=== PATIENT | male | born 1975 | race Caucasian/White ===

== ENCOUNTER 2019-06-03 06:43 | Inpatient (IN) ==
[~2019-06-03 06:43] MED LIST: Bacitracin 50,000 UNIT, Polymyxin B Sulfate 500,000 UNIT, Sodium Chloride IRRigation 1,... IR ONE
[2019-06-03] MEDS ORDERED: *HR* Succinylcholine 200 MG/10 ML VIAL IVP ONE (07:03)
[2019-06-03] MEDS ORDERED: Lidocaine -MPF 4% 5 ML AMPUL ONE (07:03)
[2019-06-03] MEDS ORDERED: Dexamethasone 4 MG/ML VIAL ONE (07:03)
[2019-06-03] MEDS ORDERED: Lidocaine -MPF 2% 2 ML VIAL ONE (07:03)
[2019-06-03] MEDS ORDERED: *HR* Midazolam HCl 2 MG/2 ML VIAL ONE ×2 (07:03→11:35)
[2019-06-03] MEDS ORDERED: Ketorolac 30 MG/ML VIAL ONE (07:03)
[2019-06-03] MEDS ORDERED: *HR* Rocuronium Bromide 50 MG/5 ML VIAL ONE (07:03)
[2019-06-03] MEDS ORDERED: *HR* Propofol 200 MG/20 ML VIAL IVP ONE (07:03)
[2019-06-03] MEDS ORDERED: Ondansetron 4 MG/2 ML VIAL ONE (07:03)
[2019-06-03] MEDS ORDERED: Neostigmine Methylsulfate 3 MG/3 ML SYRINGE ONE (07:03)
[2019-06-03] MEDS ORDERED: *HR* Remifentanil 1 MG VIAL IVP ONE ×2 (07:04→10:51)
[2019-06-03] MEDS ORDERED: CeFAZolin Syr 2,000MG/20 ML 2,000 MG/20 ML SYRINGE IVPB ONE (07:12)
[2019-06-03] MEDS ORDERED: Ringers Solution, Lactated 1,000 ML IVC SCH (07:15)
--- NOTE | 2019-06-03 07:28 | Anesthesia Evaluation PreOp ---
Date of Encounter: 06/03/19 Time of Encounter: 07:26 - Past History Planned Operation: PLIF S3-L1 Cardiac History: Denies any Significant Hx Pulmonary History: Smoker CHEF DE FROID History: Denies Any Significant HX Other Medical History: Denies Any Significant HX Anesthesia History: No Prior Anesthetic Complications, Past Anesthesia (L4-S1 Fusion, Tonsillectomy, L- Thumb, Vasectomy) Alcohol Use: none Drug use: none Medications and Allergies Allergy/AdvReac Type Severity Reaction Status Date / Time No Known Allergies Allergy Verified 05/15/19 10:55 - Meds/Allergy Pre-op Review Medications Reviewed: Yes Allergies Reviewed: Yes Beta Blockers on Current Med List: No Anesthesia Results - Labs Laboratory Tests 05/15/19 05/15/19 05/15/19 11:18 11:18 11:18 WBC 7.6 Hgb 14.3 Hct 40.9 Plt Count 291 INR 0.9 Sodium 139 Potassium 4.0 Chloride 104 Carbon Dioxide 24 BUN 23 H Creatinine 0.93 Anesthesia Exam O2 Sat Height 1.91 m Weight 98.883 kg O2 Sat by Pulse Oximetry 18 Vital Signs Temp Pulse Resp Pulse Ox 98.4 F 87 96 18 06/03/19 07:16 06/03/19 07:16 06/03/19 07:16 06/03/19 07:16 - HEENT Pupil (Motor): Pupils equal, EOMI Oral Opening: Greater than 3 - CHEF DE FROID LOC: Oriented CHEF DE FROID Motor: Normal RUE, Normal LUE, Normal RLE, Normal LLE, Normal Face CHEF DE FROID Sensory: Normal: RUE, LUE, RLE, LLE, Face - Cardiac Rhythm: Regular Murmur: None JVD: No Carotid Bruit: No - Pulmonary Breath Sounds: bilateral Clear Respiratory Effort: Symmetrical Anesthesia Assess/Plan ASA Score: 2 Level of consciousness: Cooperative Anesthetic Plan: General Autologous Blood: Yes Monitoring Plan: Standard Monitors Recovery Plan: PACU
[2019-06-03] MEDS: Albuterol 2.5 MG/3 ML NEBULIZER IH ONE ×2 (07:30→23:12)
[2019-06-03] MEDS ORDERED: *HR* Labetalol 20 MG/4 ML SYRINGE IVP PRN (07:40)
[2019-06-03] MEDS ORDERED: *HR* OxyCODONE Immed Rel 5 MG TABLET PO PRN (07:40)
[2019-06-03] MEDS ORDERED: *HR* Promethazine 25 MG/ML VIAL IVP PRN (07:40)
[2019-06-03] MEDS ORDERED: Ondansetron 4 MG/2 ML VIAL IVP ONE (07:40)
--- NOTE | 2019-06-03 08:04 | History & Physical Report ---
Date of Encounter: 06/03/19 Time of Encounter: 08:03 24 Hour HP Update - Instructions Instructions: If the History and Physical is less than 30 days old and was completed prior to A.M. admission and or procedure and has NOT been updated on calendar day of procedure please complete this update prior to performing procedure. - Update Patient reports changes in Medical Condition: No Changes in examination, assessment, or condition: No Changes in Medication: No Preop tests/diagnostics Reviewed: Yes Pre-Op MRSA Screen: Negative Surgery Remains Indicated: Yes Consent for Planned Operative Procedure(s) Verified: Yes - Pre-Operative Checklist Preoperative Checklist Indicated: No Prophylactic Antibiotic Ordered: Yes Home Medications Include Beta Memo: No Beta Memo Taken Today (Day of Surgery): No Beta Memo Taken Yesterday (Day Prior to Surgery): No Is VTE Prophylaxis Indicated?: Yes
--- NOTE | 2019-06-03 12:52 | Orthopedic Operative Note ---
Date of procedure: 06/03/19 Pre-op diagnosis: Retrolisthesis, lumbar stenosis, lumbar radiculopathy, Hx lumbar fusion Post-op diagnosis: same Operation/Findings: Posterior lumbar interbody fusion L3-S1: The patient successfully underwent general endotracheal anesthesia. The patient was given antibiotics prior to the start of the procedure. Compression boots and stockings were used for deep vein thrombosis prophylaxis. A Davis catheter was placed. Leads for neuro monitoring were placed on the upper and lower extremities. This included the cranium. The neuro monitoring personnel confirmed there were satisfactory readings prior to the start of the procedure. The patient was turned prone on the Vishal table. The back was prepped and draped in the usual sterile fashion. An incision was was marked and centered over the involved L3-S1 levels in the mid line. The incision was deepened through the lumbar fascia. Bovie cautery and Lanza elevators were used to reflect the paraspinal musculature at the lateral extent of the transverse processes of the involved L3-S1 levels. Claire clamps were placed over the L3 and L4 spinous processes. An intraoperative lateral fluorograph was obtained. A conversation was held between the surgeon and radiologist and both confirmed we had the correct operative levels. We explored and palpated the fusion mass from L4-S1 and there appeared to be a solid arthrodesis. We removed the left and right sided cap nut s and hubert construct to evaluate if the previous pedicle screw instrumentation could be removed with standard instruments. We then placed pedicle screws in standard fashion with the aid of fluoroscopy and anatomic landmarks. Briefly a starter awl was used. A gearshift was subsequently used to enter the pilot manager hole via a transpedicular route into the vertebral body. The pilot manager hole was tapped with an undersized instrument, and subsequently two 6.5 x 40 mm pedicle screws were placed bilaterally at the indicated L3 level. The screws were tested with the aid of the neurologic monitoring staff via pedicle screw stimulation. All reading suggested there was no significant cortical wall breech. The screws were also evaluated fluoro- graphically and appeared to be in satisfactory position. We then turned our attention to the decompression portion of the procedure. We removed the supraspinous and interspinous ligaments and subsequently the insertion of the ligamentum flavum on the undersurface of the proximal L3 lamina was dislodged with a curette. We then removed the ligamentum flavum as well as undercut the L3-4 facets at this L3-4 level to decompress the lateral recesses. We also performed a L3 laminectomy. After the decompression, which was over and above that which was required to place the interbody graft, the foramen and traversing roots at this L3-4 level were found to be free and patent. We also took part of the medial facets in order to aid in the decompression. We then protected the neural elements including the thecal sac and traversing nerve root on the right with a dural retractor. We made an annulotomy into the L3-4 disc space and then removed entire disc material using Pituitary instruments. We trialed various size grafts after the endplates were prepared for graft insertion. A 10 x 26 enter body graft fit well within the L3-L4 disc space. We obtained some bone from the right posterior superior iliac spine through us a separate incision and combined with this with the bone which we had saved from the laminectomy portion of the procedure. This autograft bone was first placed in the anterior portion of the L3-L4 disc space and additional bone was placed within the interbody graft spacer. We then placed the interbody graft spacer obliquely across the L3-L4 disc space towards the midline while protecting the neural elements with a root retractor. When the graft was found to be in satisfactory position the home theatre technician was removed. We then copiously irrigated the wound. We then decorticated the L3 and L4 transverse processes as well as the facet joints of the involved L3-L4 levels to aid in the posterolateral fusion. We placed autograft bone in the lateral gutters over L3 and L4 regions. We then placed rods within the screw heads of the L4-S1 levels after placing a dominant no type device to allow joining of a separate hubert to the L3-4 levels. These connectors were placed between L4 and L5 and then we connected a separate hubert to the L3 and L4 levels. Metastases were placed over the rods and they were locked and finally tightened in standard fashion. This left pedicle screw instrumentation at L3, L4, L5, and S1 connected by a total of 4 rods, 2 rods connecting L4-S1 and a separate hubert with connector connecting L3 and L4. We then closed the wound in layers with 1 Vicryl for the fascia, 2-0 Vicryl. Subcutaneous tissue, and Dermabond was used for skin closure. Sterile dressings were placed over the wound. The patient was turned supine on a hospital bed and extubated. All sponge instruments and needle counts were correct at the end of the procedure. The patient tolerated the procedure well without complications. Anesthesia: GETA Surgeon: Jerome Anthony Jr Was there an speech language assistant present: No Estimated blood loss (cc): 125 Specimen: None Condition: stable Disposition: PACU
[2019-06-03] MEDS: *HR* HYDROmorphone (PF) 1 MG/ML SYRINGE IVP PRN ×2 (13:05→13:30)
[2019-06-03] MEDS ORDERED: Ringers Solution, Lactated 1,000 ML ONE (13:31)
--- NOTE | 2019-06-03 13:44 | Anesthesia Evaluation Post Op ---
Date of Encounter: 06/03/19 Time of Encounter: 13:44 - Vital Signs Vital Signs: Vital Signs/O2 Sat, Most Current Temp Pulse Resp BP Pulse Ox 99.4 F 83 16 131/87 96 06/03/19 13:26 06/03/19 13:36 06/03/19 13:36 06/03/19 13:36 06/03/19 13:36 - Lungs Lungs: Clear Ascult./Percussion - Airway Airway: Non-obstructed - Cardiovascular Regular Rate - Mental Status Mental Status: Alert & Oriented, Answers Appropriately - Pain Pain Scale: 2 Pain Scale used: Numeric (1 - 10) - Nausea Vomiting Nausea Vomiting: Not Present - Hydration Hydration: Ice chips, Davis catheter - Discharge PostOp Status: Transfer Patient to floor
[2019-06-03] MEDS ORDERED: Acetaminophen 325 MG TABLET PO PRN (14:13)
[2019-06-03] MEDS ORDERED: Naloxone 0.4 MG/ML INJ IVP PRN (14:13)
[2019-06-03] MEDS: *HR* OxyCODONE Immed Rel 5 MG TABLET PO PRN ×2 (14:34→20:08)
[2019-06-03] MEDS: Ringers Solution, Lactated 1,000 ML IVC SCH ×2 (15:44→21:33)
[2019-06-03] MEDS: *HR* HYDROcodone/Acet 5/325 mg TABLET PO PRN (16:44)
[2019-06-03] MEDS: FLUoxetine 20 MG CAPSULE PO SCH (20:08)
[2019-06-03] MEDS: ALPRAZolam 0.25 MG TABLET PO SCH (20:08)
[2019-06-03] MEDS: Ondansetron 4 MG/2 ML VIAL IVP PRN (20:29)
[2019-06-04] MEDS: *HR* HYDROcodone/Acet 5/325 mg TABLET PO PRN ×2 (04:24→11:41)
[2019-06-04] MEDS: ALPRAZolam 0.25 MG TABLET PO SCH ×2 (08:14→21:44)
[2019-06-04] MEDS: *HR* OxyCODONE Immed Rel 5 MG TABLET PO PRN ×3 (08:15→22:24)
[2019-06-04] MEDS: Ringers Solution, Lactated 1,000 ML IVC SCH (08:21)
--- NOTE | 2019-06-04 08:33 | Orthopedics Progress Note ---
Date of Encounter: 06/04/19 Time of Encounter: 09:45 - Assessment and Plan (1) Retrolisthesis Current Visit: Yes Status: Chronic (2) Spinal stenosis Current Visit: Yes Status: Chronic Qualifiers: Spinal region: lumbar Neurogenic claudication status: unspecified Qualified Code(s): M48.061 - Spinal stenosis, lumbar region without neurogenic claudication (3) Lumbar radiculopathy Current Visit: Yes Status: Chronic (4) History of lumbar fusion Current Visit: Yes Status: Chronic (5) Status post lumbar spinal fusion Current Visit: Yes Status: Acute Subjective Principal diagnosis: s/p lumbar fusion Interval history: POD#1 s.p Posterior lumbar interbody fusion L3-S1 [Retrolisthesis, lumbar stenosis, lumbar radiculopathy, Hx lumbar fusion] 06/03/19 The patient is complains of dizziness intermittently. He admits to improvement in b/l LE preoperative symptoms. He relates that he has had difficulty participating in therapy secondary to the dizziness. Vital signs reviewed - again, demonstration of hypotension. Patient seen at bedside. Lying left lateral decubitus. No acute distress. Sister at bedside. Dressing is clean dry and intact. Neurovascularly intact with regard to bilateral lower extremities. Fires all upper and lower extremity motor groups. Will encourage use of agents to control pain that have lower risk of lowering BP. Continue to mobilize as tolerated with therapy. LSO brace needed - nurse navigator working to coordinate this Continue analgesics - requested nursing monitor vitals closely Discharge planning - awaiting therapy recommendations Continue with postoperative care Objective Vital signs: Vital Signs Temp Pulse Resp BP Pulse Ox 06/04/19 07:41 98.2 F 69 16 118/72 99 06/04/19 04:16 98.5 F 81 17 103/65 98 06/03/19 23:15 98.3 F 86 17 106/86 96 06/03/19 18:35 98.5 F 74 17 110/67 97 06/03/19 17:14 98.3 F 80 16 127/80 97 06/03/19 16:06 98.3 F 87 16 128/79 95 06/03/19 15:00 98.3 F 99 16 119/73 96 06/03/19 14:37 98.4 F 100 18 117/75 94 06/03/19 14:00 98.2 F 95 12 134/82 96 06/03/19 13:46 99.5 F 91 16 133/88 96 06/03/19 13:36 83 16 131/87 96 06/03/19 13:26 99.4 F 84 16 143/90 96 06/03/19 13:16 90 16 144/94 96 06/03/19 13:06 104 20 151/101 96 06/03/19 12:56 100.1 F H 109 20 150/96 100 Intake and Output 06/03/19 06/04/19 06/04/19 23:59 07:59 15:59 Intake Total 1100 / 1120 1100 / 1100 Output Total 1200 / 2125 2150 / 2150 Balance -100 / -1005 -1050 / -1050 Intake: IV Fluids 1100 / 1120 1100 / 1100 Lactated Ringers 1,000 ML @ 100 1000 / 1000 1000 / 1000 mls/hr IVC .Q10H [facility] Rx#: [id number] Ancef 2,000 MG In 0.9 % Sodium 100 / 100 100 / 100 Chloride 100 ML @ 200 mls/hr IVPB Q8HR [facility] Rx#:[id number] Output: Catheter 1200 / 1200 2150 / 2150 Urethral (Davis) 1750 / 1750 Other: Weight 99.1 kg Patient Weight 06/04/19 23:59 Weight 99.1 kg Consult Discharge Plan - Plan Referrals: Shameka Zavala MD [Primary Care Provider] - Prescriptions: Docusate Sodium [Colace] 100 mg PO BID 5 Days #10 capsule OxyCODONE Immed Rel [Roxicodone 5 MG] 5 mg PO Q6HR PRN 5 Days #20 tablet PRN Reason: Severe Pain
[2019-06-04 14:03] LABS: Hematocrit 38.8 % (37.5-50.1); Hemoglobin 13.1 g/dL (12.9-16.9); Mean Corpuscular HGB Conc 33.8 g/dL (31.6-35.5); Mean Corpuscular Hemoglobin 30.7 pg (28.0-33.3); Mean Corpuscular Volume 90.9 fL (83.0-100.0); Mean Platelet Volume 9.2 fL (9.4-12.4); Platelet Count 259 K/mcL (140-400); Red Blood Count 4.27 M/mcL (4.19-5.50); Red Cell Distribution Width 12.2 % (11.5-14.5); White Blood Count 11.8 K/mcL (4.3-11.1)
[2019-06-04 14:26] LABS: BUN/Creatinine Ratio 11 (6-26); Blood Urea Nitrogen 11 mg/dL (6-20); Calcium 9.3 mg/dL (8.6-10.3); Carbon Dioxide 30 mEq/L (23-29); Chloride 102 mEq/L (98-107); Glucose 129 mg/dL (70-105); Osmolality,Calculated 297 (280-300); Potassium 3.8 mEq/L (3.5-5.1); Sodium 143 mEq/L (136-145); eGFR For African Americans > 60 (> 60); eGFR For Non-African Americans > 60 (> 60)
[2019-06-04] MEDS ORDERED: Acetaminophen IV 1,000 MG/100 ML INFUS..BTL IVPB ONE (15:12)
[2019-06-04] MEDS: FLUoxetine 20 MG CAPSULE PO SCH (21:44)
[2019-06-05] MEDS: *HR* OxyCODONE Immed Rel 5 MG TABLET PO PRN ×3 (03:58→12:26)
[2019-06-05] MEDS: ALPRAZolam 0.25 MG TABLET PO SCH ×2 (08:19→21:05)
[2019-06-05] MEDS: Ondansetron 4 MG/2 ML VIAL IVP PRN (08:20)
[2019-06-05] MEDS: Ringers Solution, Lactated 1,000 ML IVC SCH ×2 (08:20→17:09)
--- NOTE | 2019-06-05 08:37 | Orthopedics Progress Note ---
Date of Encounter: 06/05/19 Time of Encounter: 12:15 - Assessment and Plan (1) Retrolisthesis Current Visit: Yes Status: Chronic (2) Spinal stenosis Current Visit: Yes Status: Chronic Qualifiers: Spinal region: lumbar Neurogenic claudication status: unspecified Qualified Code(s): M48.061 - Spinal stenosis, lumbar region without neurogenic claudication (3) Lumbar radiculopathy Current Visit: Yes Status: Chronic (4) History of lumbar fusion Current Visit: Yes Status: Chronic (5) Status post lumbar spinal fusion Current Visit: Yes Status: Acute Subjective Principal diagnosis: s/p lumbar fusion Interval history: POD#2 s.p Posterior lumbar interbody fusion L3-S1 [Retrolisthesis, lumbar stenosis, lumbar radiculopathy, Hx lumbar fusion] 06/03/19 The patient is complains of dizziness intermittently that has now resolved with Scopolamine patch. He admits to improvement in b/l LE preoperative symptoms. He relates that he has had difficulty participating in therapy secondary to the dizziness. Vital signs reviewed - again, demonstration of hypotension though improved today. Patient seen at bedside. Lying left lateral decubitus. No acute distress. Sister at bedside. Dressing is clean dry and intact. Neurovascularly intact with regard to bilateral lower extremities. Fires all upper and lower extremity motor groups. Will encourage use of agents to control pain that have lower risk of lowering BP. Continue to mobilize with therapy. LSO brace needed - nurse navigator working to coordinate this Continue analgesics - requested nursing monitor vitals closely Discharge planning - awaiting improvement in patient status Xrays reviewed and satisfactory Reviewed with Dr. Anthony. Dr. Anthony to round later today and determine patient's readiness for discharge at that time. Continue with postoperative care Objective Vital signs: Vital Signs Temp Pulse Resp BP Pulse Ox 06/05/19 06:49 98.5 F 87 15 111/71 95 06/04/19 22:47 99.9 F H 84 16 119/76 96 06/04/19 18:28 99.6 F 84 17 122/77 96 06/04/19 17:37 99.3 F 84 16 116/74 96 06/04/19 12:40 98.1 F 78 16 109/69 95 06/04/19 11:40 86 16 110/69 06/04/19 10:24 98.3 F 80 16 102/62 97 Intake and Output 06/04/19 06/05/19 06/05/19 23:59 07:59 15:59 Intake Total 1100 / 2440 Output Total 550 / 3000 250 / 250 Balance 550 / -560 -250 / -250 Intake: IV Fluids 1100 / 2200 Lactated Ringers 1,000 ML @ 100 1000 / 2000 mls/hr IVC .Q10H [facility] Rx#: [id number] Ofirmev 1,000 mg/100 ml 1,000 100 / 100 mg In 100 ml @ 400 mls/hr IVPB ONCE ONE Rx#:[id number] Output: Urine 550 / 850 250 / 250 Other: Weight 99.2 kg Patient Weight 06/05/19 23:59 Weight 99.2 kg - Labs CBC & BMP: 06/04/19 13:32 06/04/19 13:32 Labs: Abnormal lab results WBC 11.8 K/mcL (4.3-11.1) H 06/04/19 13:32 MPV 9.2 fL (9.4-12.4) L 06/04/19 13:32 Carbon Dioxide 30 mEq/L (23-29) H 06/04/19 13:32 Glucose 129 mg/dL (70-105) H 06/04/19 13:32 Consult Discharge Plan - Plan Referrals: Shameka Zavala MD [Primary Care Provider] - Prescriptions: Docusate Sodium [Colace] 100 mg PO BID 5 Days #10 capsule OxyCODONE Immed Rel [Roxicodone 5 MG] 5 mg PO Q6HR PRN 5 Days #20 tablet PRN Reason: Severe Pain
[2019-06-05] MEDS ORDERED: Scopolamine Patch 1.5 MG PATCH.TD72 TD ONE (10:08)
[2019-06-05] MEDS: *HR* HYDROcodone/Acet 5/325 mg TABLET PO PRN (18:43)
[2019-06-05] MEDS: FLUoxetine 20 MG CAPSULE PO SCH (21:05)
[2019-06-06] MEDS: *HR* OxyCODONE Immed Rel 5 MG TABLET PO PRN ×4 (00:26→19:00)
[2019-06-06] MEDS: *HR* HYDROcodone/Acet 5/325 mg TABLET PO PRN (03:49)
[2019-06-06] MEDS: ALPRAZolam 0.25 MG TABLET PO SCH (08:59)
[2019-06-06] MEDS ORDERED: *HR* HYDROcodone/Acet 5/325 mg TABLET PO PRN (09:18)
[2019-06-06 14:48] VITALS: BP 116/75
--- NOTE | 2019-06-06 18:00 | Spine Progress Note ---
Date of Encounter: 06/06/19 Time of Encounter: 17:59 Subjective Principal diagnosis: s/p lumbar fusion Interval history: The patient is without complaints. States his leg pain is improved compared to his preoperative state. Afebrile vital signs are stable. Incision is clean dry and intact. Neurovascularly intact with regard to bilateral lower extremities. Fires all upper and lower extremity motor groups. Assessment :stable. Plan mobilize ,continue analgesics, discharge planning. Probable discharge today. Objective Vital signs: Vital Signs Temp Pulse Resp BP Pulse Ox 06/06/19 14:48 98.7 F 96 16 116/75 100 06/06/19 10:00 98.9 F 87 16 126/78 98 06/06/19 06:40 99.4 F 84 16 128/76 95 06/06/19 03:21 99.4 F 87 14 122/79 94 06/05/19 22:45 98.7 F 89 14 105/68 94 06/05/19 18:49 99.6 F 91 14 120/70 96 Intake and Output 06/06/19 06/06/19 06/06/19 07:59 15:59 23:59 Intake Total 300 / 780 480 / 780 Output Total 100 / 850 750 / 850 Balance 200 / -70 -270 / -70 Intake: Oral 300 / 780 480 / 780 Output: Urine 100 / 850 750 / 850 Other: Meal Lunch Percent of Meal Consumed 50% - Labs CBC & BMP: 06/04/19 13:32 06/04/19 13:32 Labs: Abnormal lab results WBC 11.8 K/mcL (4.3-11.1) H 06/04/19 13:32 MPV 9.2 fL (9.4-12.4) L 06/04/19 13:32 Carbon Dioxide 30 mEq/L (23-29) H 06/04/19 13:32 Glucose 129 mg/dL (70-105) H 06/04/19 13:32 Consult Discharge Plan - Plan Additional Instructions: Discharge Instructions: Lumbar Please call [facility] ([phone]), your Primary Care Physician, or report to the ER if you have any of the following symptoms: Fever greater that 101.5, increased pain/redness/drainage/odor for your incision site or any other concerning symptoms. ACTIVITY * May Shower * No Tub Baths * No lifting greater than 10 pounds * No Smoking * No Swimming * No off Ground Activities (Running, Climbing, Ladders, Horseback Riding) * No Driving * Wear Back Brace when up walking if lumbar fusion done * Incentive Spirometer 10 times an hour MEDICATIONS: Upon discharge resume your home medications. Take all the medications as prescribed. Take a stool softener if taking narcotic pain medications. Stool softeners are only effective if you drink enough fluids. Drink 6-8 glass of water or fluids a day, unless this is not allowed for another health problem. Despite using stool softeners, if you haven't had a bowel movement in 3 days, please switch to a gentle laxative. Gentle laxatives are sold over the counter. You should have a bowel movement within 24 hours, if not call the office. You will be discharged from the hospital with a prescription for pain medication. You are encouraged to decrease the use of narcotic pain medication as tolerated. Should you require a refill, please call the office. It is best to call 48-72 hours in advance of needing a prescription refill so you don't run out of medication. WOUND CARE: Remove Dressing Tomorrow. Leave incision open to air. Pat dry when you get out of the shower. FOLLOW-UP: Please follow up with your surgeon in the orthopedic clinic in 2 weeks from the day of surgery. References: [employer] (www.apta.org) Referrals: Karin Morin PAC [Physician Consumer Experience Consultant] - 06/16/19 10:00 am Shameka Zavala MD [Primary Care Provider] - 07/17/19 7:00 am Prescriptions: Docusate Sodium [Colace] 100 mg PO BID 5 Days #10 capsule OxyCODONE Immed Rel [Roxicodone 5 MG] 5 mg PO Q6HR PRN 5 Days #20 tablet PRN Reason: Severe Pain
--- NOTE | 2019-06-09 12:07 | Discharge Summary ---
Date of Encounter: 06/06/19 Time of Encounter: 12:06 - Discharge Diagnosis (1) Retrolisthesis Priority: Primary Status: Chronic (2) Spinal stenosis Priority: Primary Status: Chronic Qualifiers: Spinal region: lumbar Neurogenic claudication status: unspecified Qualified Code(s): M48.061 - Spinal stenosis, lumbar region without neurogenic claudication (3) Lumbar radiculopathy Priority: Primary Status: Chronic (4) History of lumbar fusion Priority: Primary Status: Chronic (5) Status post lumbar spinal fusion Priority: Primary Status: Acute - Hospital Course Hospital course: Mr. Butt is a 44 year old male Posterior lumbar interbody fusion L3- S1[Retrolisthesis, lumbar stenosis, lumbar radiculopathy, Hx lumbar fusion] 06/03/19 The patient's postoperative was uneventful. Progressed from intravenous deborah lgesic needs to oral analgesic needs only. Remained neurovascularly intact and mobilized satisfactorily. All radiographic studies were satisfactory. Patient course and disposition was followed by Dr. Anthony. Patient seen by Dr. Herr as discharging physician on this day. Patient is discharged to home with outpatient therapy as plan for rehabilitation and outpatient orthopedic follow up has been arranged. - Time Spent with Patient Total time spent providing and/or coordinating discharge services: - Discharge Medications Prescriptions: New Docusate Sodium [Colace] 100 mg PO BID 5 Days #10 capsule OxyCODONE Immed Rel [Roxicodone 5 MG] 5 mg PO Q6HR PRN 5 Days #20 tablet PRN Reason: Severe Pain Continued FLUoxetine HCl [Fluoxetine HCl] 40 mg PO HS ALPRAZolam [Xanax 0.25 MG Tablet] 0.25 mg PO BID HydrOXYzine [Atarax] 10 mg PO HS Home Medications: ALPRAZolam [Xanax 0.25 MG Tablet] 0.25 mg PO BID 06/03/19 [History] FLUoxetine HCl [Fluoxetine HCl] 40 mg PO HS 06/03/19 [History] HydrOXYzine [Atarax] 10 mg PO HS 06/03/19 [History] Docusate Sodium [Colace] 100 mg PO BID 5 Days #10 capsule 06/04/19 [Rx] OxyCODONE Immed Rel [Roxicodone 5 MG] 5 mg PO Q6HR PRN 5 Days #20 tablet 06/04/19 [Rx] Allergies/Adverse Reactions: Allergy/AdvReac Type Severity Reaction Status Date / Time No Known Allergies Allergy Verified 06/03/19 07:41 Date of admission: 06/03/19 14:12 Primary care physician: Shameka Zavala MD Consults: 06/03/19 14:13 Consult to Occupational Therapy [CONS] Routine Comment: Evaluate, develop and implement POC Reason for Consult: Postoperative rehabilitation Does patient have active BEDREST order?: No Is patient medically & hemodynamically stable?: Yes Patient assessed for mobility or mobilized this visit?: No Consult to Physical Therapy [CONS] Routine Comment: Evaluate, develop and implement POC Reason for Consult: Postoperative rehabilitation Does patient have active BEDREST order?: No Is patient medically & hemodynamically stable?: Yes Patient assessed for mobility or mobilized this visit?: No Consult to Spine Navigator [CONS] [CONS] Routine 06/03/19 16:47 Consult to Nurse First Assist [CONS] Routine Reason for SW Consult: medicaid/financial conerns Discharging clinician: Jerome Anthony Jr Anticipated date of discharge: 06/06/19 - VTE Documentation of Mechanical Device: Graduated compression elastic hosiery - Impressions ITS Impressions Fluoroscopy 06/03/19 08:40 IMPRESSION: Intraprocedural fluoroscopic spot images as above. See separate procedure report for more information. D/ / 06/03/2019 12:45:06 Carlos Lassiter MD / [place] Interpreting Provider: Carlos Lassiter MD Lumbar Spine X-Ray 06/03/19 08:40 IMPRESSION: Intraprocedural fluoroscopic spot images as above. See separate procedure report for more information. D/ / 06/03/2019 12:45:06 Carlos Lassiter MD / [place] Interpreting Provider: Carlos Lassiter MD Lumbar Spine X-Ray 06/05/19 12:52 IMPRESSION: 1. Status post L3 through S1 posterior instrumented fusion and discectomy with no radiographic evidence for complication. D/ / Raffi Archer MD / Raffi Archer MD Interpreting Provider: Raffi Archer MD - Patient Status Disposition: Home, Self-Care Condition: Good Functional capacity at discharge: uses cane/walker Overall status at discharge: patient is progressing back to baseline - Discharge Instructions Follow Up With: Karin Morin PAC [Physician Special Education Director] - 06/16/19 10:00 am Shameka Zavala MD [Primary Care Provider] - 07/17/19 7:00 am Additional Instructions: Discharge Instructions: Lumbar Please call [facility] ([phone]), your Primary Care Physician, or report to the ER if you have any of the following symptoms: Fever greater that 101.5, increased pain/redness/drainage/odor for your incision site or any other concerning symptoms. ACTIVITY * May Shower * No Tub Baths * No lifting greater than 10 pounds * No Smoking * No Swimming * No off Ground Activities (Running, Climbing, Ladders, Horseback Riding) * No Driving * Wear Back Brace when up walking if lumbar fusion done * Incentive Spirometer 10 times an hour MEDICATIONS: Upon discharge resume your home medications. Take all the medications as prescribed. Take a stool softener if taking narcotic pain medications. Stool softeners are only effective if you drink enough fluids. Drink 6-8 glass of water or fluids a day, unless this is not allowed for another health problem. Despite using stool softeners, if you haven't had a bowel movement in 3 days, please switch to a gentle laxative. Gentle laxatives are sold over the counter. You should have a bowel movement within 24 hours, if not call the office. You will be discharged from the hospital with a prescription for pain medication. You are encouraged to decrease the use of narcotic pain medication as tolerated. Should you require a refill, please call the office. It is best to call 48-72 hours in advance of needing a prescription refill so you don't run out of medication. WOUND CARE: Remove Dressing Tomorrow. Leave incision open to air. Pat dry when you get out of the shower. FOLLOW-UP: Please follow up with your surgeon in the orthopedic clinic in 2 weeks from the day of surgery. References: [employer] ([email or web address]) - Diet and Activity Activity: as per physical therapy Diet: advance to your usual diet
== END 2019-06-06 19:05 | disposition home or self-care (01) | DRG 304 ==
LOC: SAMDAY 06:43 → 3NENU 14:12
PROVIDERS: ADMIT Orthopaedic Surgery Orthopaedic Surgery of the Spine; ATTEND Orthopaedic Surgery Orthopaedic Surgery of the Spine